=== PATIENT | female | born 1985 | race Caucasian/White ===

== ENCOUNTER 2019-02-03 13:47 | Emergency (ER) | payer OTHER ==
[~2019-02-03] VITALS: Ht 157.5 cm; Wt 75.7 kg
[2019-02-03 14:05] VITALS: BP 119/70; Ht 157.5 cm; Wt 75.7 kg
== END 2019-02-03 16:00 | disposition home or self-care (01) ==
LOC: ED 13:47
DX: M25.562 Pain in left knee (principal); M25.571 Pain in right ankle and joints of right foot; G43.909 Migraine, unspecified, not intractable, without status migrainosus

== ENCOUNTER 2020-02-03 19:33 | Emergency (ER) | payer OTHER ==
[~2020-02-03] VITALS: Ht 157.5 cm; Wt 83.9 kg
[2020-02-03 19:45] VITALS: Ht 157.5 cm; Wt 83.9 kg
[2020-02-03 20:52] VITALS: BP 114/64
== END 2020-02-03 20:52 | disposition home or self-care (01) ==
LOC: ED 19:33
DX: E04.1 Nontoxic single thyroid nodule (principal)
CPT/HCPCS: Q0092